=== PATIENT | female | born 1995 | race Caucasian/White ===

== ENCOUNTER 2020-04-13 16:05 | Outpatient (REF) | payer OTHER, SELFPAY | END 2020-04-13 16:06 | disposition home or self-care (01) | LOC: HO.LNP 16:05 | PROVIDERS: Visit Provider Hospitalist | DX: Z20.828 Contact with and (suspected) exposure to other viral communicable diseases (principal) | CPT/HCPCS: U0003 ==

== ENCOUNTER 2020-07-02 10:53 | Outpatient (REF) | payer OTHER, SELFPAY ==
[2020-07-04 09:57] LABS: C. trachomatis RNA TMA NOT DETECTED (NOT DETECTED); N. gonorrhoeae RNA TMA NOT DETECTED (NOT DETECTED)
== END 2020-07-02 10:54 | disposition home or self-care (01) ==
LOC: HO.LAB 10:53
PROVIDERS: Visit Provider Advanced Practice Midwife
DX: Z11.3 Encounter for screening for infections with a predominantly sexual mode of transmission (principal)
CPT/HCPCS: 36415; 87491; 87591

== ENCOUNTER → 2020-09-10 09:59 | Outpatient (BNVA) | payer OTHER, SELFPAY | PROVIDERS: Visit Provider Advanced Practice Midwife | DX: Z30.46 Encounter for surveillance of implantable subdermal contraceptive (principal) | CPT/HCPCS: 11981; 11982; 11983; 81025 ==

== ENCOUNTER → 2020-10-22 10:27 | Outpatient (BNVA) | payer OTHER, SELFPAY | PROVIDERS: PCP Internal Medicine; Visit Provider Advanced Practice Midwife | DX: Z30.46 Encounter for surveillance of implantable subdermal contraceptive (principal) | CPT/HCPCS: 99212 ==

== ENCOUNTER 2021-02-12 14:00 | Outpatient (REF) | payer OTHER, SELFPAY ==
[2021-02-12 18:08] LABS: Alanine Aminotransferase 13 U/L (0-31); Albumin Level 4.3 g/dL (3.5-5.0); Alkaline Phosphatase 55 U/L (39-117); Aspartate Amino Transferase 17 U/L (5-31); Bilirubin Direct 0.2 mg/dL (0.0-0.5); Bilirubin Total 0.5 mg/dL (0.0-1.0)
== END 2021-02-12 14:01 | disposition home or self-care (01) ==
LOC: HO.HMGCLDS 14:00
PROVIDERS: PCP Internal Medicine; Visit Provider Podiatrist
DX: B35.1 Tinea unguium (principal)
CPT/HCPCS: 36415; 80076

== ENCOUNTER 2021-10-29 14:28 | Outpatient (REF) | payer OTHER, SELFPAY ==
[2021-10-29 15:31] LABS: Influenza A PCR NEGATIVE (Negative); Influenza B PCR NEGATIVE (Negative); Resp Syncy Virus RNA Qual PCR NEGATIVE (Negative); SARS COV2 PCR INHOUSE NEGATIVE (Negative)
== END 2021-10-29 14:29 | disposition home or self-care (01) ==
LOC: HO.LNP 14:28
PROVIDERS: Visit Provider Physician Assistant
DX: J06.9 Acute upper respiratory infection, unspecified (principal); R05.9 Cough, unspecified; J02.9 Acute pharyngitis, unspecified; Z20.822 Contact with and (suspected) exposure to COVID-19
CPT/HCPCS: 0241U

== ENCOUNTER 2022-09-05 09:28 | Outpatient (AMB) | payer OTHER, SELFPAY ==
--- NOTE | 2022-09-05 09:31 | A.OFFPC_ITS ---
<Statement entered by oJsi Elizabeth MD - 07/03/25 00:24> This note has been administratively?closed. Vital Signs 09/05/22 09:32 Height 5 ft 7.5 in Weight 169 lb 0.6 oz BMI 26.1 BP 118/82 Blood Pressure Location Lt brachial Position Sitting Pulse 76 Pulse Source Pulse Oximeter Temp Source Skin Pulse Oximetry (%) 100 Oxygen Delivery Method Room Air Intake Visit Reasons: PE Intake Note: Patient is here today for a physical. 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 boulardii)) 250 mg PO BID PRN sertraline 50 mg PO DAILY Tobacco use date assessed: 09/05/22 HPI PE HPI Details 26-year-old lady here today for physical exam. She goes to [facility] OBGYN sees Dr. Goetz at 10 mm for her routine Pap and pelvic exam, last done in 2021 with normal findings. [facility] Medical History anxiety Headache above the eye region Annual visit for general adult medical examination with abnormal findings TMJ pain dysfunction syndrome Environmental and seasonal allergies Ingrown toenail of right foot Surgical History History of appendectomy Family History Father Hypertension Maternal Grandmother Diabetes mellitus Maternal Grandfather Diabetes mellitus Paternal Grandfather Diabetes mellitus Paternal Grandmother Diabetes mellitus Mother Breast cancer, Onset Age: 50 Social History Housing: Apartment Housing Other:: apartments Alcohol intake: current Alcohol intake frequency: a few times a month Patient Tobacco Use Status: Never used Tobacco Cigarette Packs Per Day: 0 e-Cigarette/Vaping Use: Never Used service: Yes Current occupational status: unemployed Cognitive needs: No Hearing needs: No Vision needs: Yes Female Reproductive History Menstrual Age of Menarche: 15 Date of last menstrual period: 05/25/22 Date of last pap smear: 06/01/22 History of abnormal pap smear: No Questionnaire PHQ-9 Over the last 2 weeks, how often have you been bothered by any of the following problems? 1. Little interest or pleasure in doing things: not at all 2. Feeling down, depressed, or hopeless: not at all 3. Trouble falling or staying asleep, or sleeping too much: not at all 4. Feeling tired or having little energy: not at all 5. Poor appetite or overeating: not at all 6. Feeling bad about yourself - or that you are a failure or have let yourself or your family down: not at all 7. Trouble concentrating on things, such as reading the newspaper or watching television: not at all 8. Moving or speaking so slowly that other people could have noticed. Or the opposite - being so fidgety or restless that you have been moving around a lot more than usual: not at all 9. Thoughts that you would be better off or of hurting yourself in some way: not at all Total score: 0 Depression Screening Interpretation: Negative Source: Developed by Drs. Arpan Lovell, Cheryl Cuba, Jaret Gibbs and colleagues, with an educational aliza from [employer]. Thrive Questionnaire Declines Thrive assessment: No Date Thrive assessed: 09/05/22 I am a: Patient What is your living situation today?: I have a steady place to live Within the past 12 months, did the food you bought not last and you didn't have the money to get more?: Never true Within the past 12 months, did you worry whether your food would run out before you got money to buy more?: Never true Do you have trouble paying for medicines?: No Do you have trouble getting transportation to medical appointments?: No Do you have trouble paying your heating and electricity bill?: No Do you have trouble taking care of your child, family member or friend?: No Do you have trouble with day-to-day activities such as bathing, preparing meals, shopping, managing finances, etc.?: No Are you currently unemployed and looking for a job?: No Are you interested in more education?: No AUDIT C Alcohol Use Questionnaire (AUDIT-C) 1. How often do you have a drink containing alcohol?: 2-4 times a month 2. How many drinks containing alcohol do you have on a typical day when you are drinking?: 1 or 2 3. How often do you have six or more drinks on one occasion?: Never Total Score: 2 LARISA-7 AMB Questionnaire LARISA-7 Date LARISA - 7 assessed: 09/05/22 Feeling nervous, anxious, or on edge: 0 = Not at all Not being able to stop or control worryin = Not at all Worrying too much about different things: 0 = Not at all Trouble relaxin = Not at all Being so restless that it is hard to sit still: 0 = Not at all Becoming easily annoyed or irritable: 0 = Not at all Feeling afraid as if something awful might happen: 0 = Not at all Total LARISA-7 score (0-4 normal; 5-9 mild; 10-14 moderate; 15-21 severe): 0 Source: Developed by Drs. Arpan Lovell, Cheryl Cuba, Jaret Gibbs and colleagues, with an educational aliza from [employer]. Physical exam (Primary Care) Vital Signs: Last Vital Signs Pulse 76 09/05/22 09:32 BP 118/82 09/05/22 09:32 Pulse Ox 100 09/05/22 09:32 Oxygen Delivery Method Room Air 09/05/22 09:32 BMI result Body Mass Index 26.1 Tobacco/Smoking Status: Tobacco use Status Tobacco use date assessed 09/05/22 09/05/22 09:33 Patient Tobacco Use Status Never used Tobacco 09/05/22 09:59 PHQ-9: PHQ-9 Score PHQ-9: Total score 0 09/05/22 10:28 Depression Screening Interpretation: Negative Thrive Assessment: Date of Thrive Assessment Date Thrive assessed 09/05/22 09/05/22 09:33 Coding Level of Care Code Admin Sign Off/No Billing Diagnoses Headache above the eye region R51.9 Annual visit for general adult medical examination with abnormal findings Z00.[address] Z97.5 Environmental and seasonal allergies J30.89 anxiety O99.345; F41.8
[2022-09-05 09:32] VITALS: BP 118/82; PULSE 76; O2SAT 100; BMI 26.1
== END 2022-09-05 10:27 | disposition home or self-care (01) ==
LOC: HO.HMGC 09:28
PROVIDERS: PCP Internal Medicine; Visit Provider Internal Medicine
DX: R51.9 Headache, unspecified (principal); Z00.01 Encounter for general adult medical examination with abnormal findings; Z97.5 Presence of (intrauterine) contraceptive device; J30.89 Other allergic rhinitis; O99.345 Other mental disorders complicating the puerperium; F41.8 Other specified anxiety disorders
CPT/HCPCS: 99499

== ENCOUNTER 2022-09-05 10:29 | Outpatient (REF) | payer OTHER, SELFPAY ==
[2022-09-05 11:42] LABS: MANUAL DIFF FLAG NO
[2022-09-05 11:55] LABS: Eosinophils Absolute Auto 0.1 X10*3/uL (0.0-0.4); Eosinophils Percent Auto 2.6 % (0-4); Hematocrit 43.7 % (37.0-47.0); Hemoglobin 14.3 g/dl (12.0-16.0); Imm Gran Abs Auto 0.01 X10*3/uL (0.00-0.03); Imm Gran Pct Auto 0.2 % (0.0-0.4); Lymphocytes Absolute Auto 1.4 X10*3/uL (1.2-4.9); Lymphocytes Percent Auto 33.3 % (20-40); Mean Corpuscular HGB Conc 32.7 g/dl (31.0-35.0); Mean Corpuscular Hemoglobin 29.3 pg (27.0-33.0); Mean Corpuscular Volume 89.5 fL (80.0-98.0); Mean Platelet Volume 11.7 fL (9.4-12.3); Monocytes Absolute Auto 0.4 X10*3/uL (0.1-1.2); Neutrophils Absolute Auto 2.3 x10*3/uL (2.0-8.3); Neutrophils Percent Auto 53.9 % (45-73); Platelet Count 241 X10*3/uL (160-400); Red Blood Count 4.88 X10*6/uL (4.20-5.50); Red Cell Distribution Width 12.2 % (11.0-16.0); White Blood Count 4.2 X10*3/uL (4.8-10.8)
[2022-09-05 12:36] LABS: Alanine Aminotransferase 16 U/L (0-31); Anion Gap 9 (12-20); Aspartate Amino Transferase 19 U/L (5-31); Blood Urea Nitrogen 21 mg/dL (9-16); Calcium 9.6 mg/dL (8.4-10.2); Carbon Dioxide 29 mmol/L (22-29); Chloride 106 mmol/L (96-108); Cholesterol 196 mg/dL; Estimated Glomerular Filt Rate > 60; Glucose Fasting 77 mg/dL (60-99); HDL Cholesterol 77 mg/dL; LDL Cholesterol Calculated 111 mg/dl; Potassium 4.4 mmol/L (3.3-5.1); Sodium 140 mmol/L (135-145); Triglycerides 44 mg/dL
[2022-09-05 12:37] LABS: Vitamin D 25-OH Total 28.3 ng/mL (>30)
== END 2022-09-05 10:30 | disposition home or self-care (01) ==
LOC: HO.HMGCLDS 10:29
PROVIDERS: PCP Internal Medicine; Visit Provider Internal Medicine
DX: Z00.01 Encounter for general adult medical examination with abnormal findings (principal); R51.9 Headache, unspecified; J30.89 Other allergic rhinitis; F41.8 Other specified anxiety disorders; Z97.5 Presence of (intrauterine) contraceptive device
CPT/HCPCS: 36415; 80048; 80061; 82306; 84450; 84460; 85025

== ENCOUNTER 2023-09-15 07:52 | Outpatient (AMB) | payer OTHER, SELFPAY ==
--- NOTE | 2023-09-15 07:54 | MHC.PC.OV ---
Vital Signs 09/15/23 07:58 Height 5 ft 8 in Weight 192 lb BMI 29.2 BP 104/70 Blood Pressure Location Rt brachial Position Sitting Pulse 77 Pulse Source Pulse Oximeter Pulse Oximetry (%) 99 Oxygen Delivery Method Room Air Intake Visit Reasons: Annual PE Intake Note: Pt is here today for her PE: Last papsmear 07/28/23 Allergies No Known Allergies Allergy (Verified 09/15/23 08:18) Medication List - Last Reconciled 09/15/23 by Josi Elizabeth MD albuterol sulfate 90 mcg/actuation 1 inh inhalation QID PRN cetirizine (Zyrtec) 10 mg PO BEDTIME PRN etonogestrel (Nexplanon) subdermal sertraline 50 mg PO DAILY Tobacco use date assessed: 09/15/23 Dental Screening Dental Screen Date: 09/15/23 Did you have a dental visit in the last 12 months?: Yes Did you have a dental problem in the last 6 months where you did not have access to dental care?: No Was dental information given to patient?: Patient has dentist HPI Annual PE HPI Details 27-year-old lady here today for her physical exam. She sees Dr. Mace at [facility] saw operator for her routine Pap and pelvic exam, up-to-date with her Pap smear, done 07/28/2023 with negative findings. Currently on Nexplanon for control and is on sertraline for treatment of anxiety, also prescribed by her saw operator. Has been having nasal congestion with postnasal drainage and sore throat, which has been present for the last several days. Patient states that her stepson and daughter has the same issues and is currently on antibiotic. Denies any accompanying fever, but has a mild headache [facility] Medical History anxiety Headache above the eye region Annual visit for general adult medical examination with abnormal findings TMJ pain dysfunction syndrome Environmental and seasonal allergies Ingrown toenail of right foot Surgical History History of appendectomy Family History Father Hypertension Maternal Grandmother Diabetes mellitus Maternal Grandfather Diabetes mellitus Paternal Grandfather Diabetes mellitus Paternal Grandmother Diabetes mellitus Mother Breast cancer, Onset Age: 50 Social History Housing: Apartment Housing Other:: apartments Alcohol intake: current Alcohol intake frequency: a few times a month Patient Tobacco Use Status: Never used Tobacco Cigarette Packs Per Day: 0 e-Cigarette/Vaping Use: Never Used service: Yes Current occupational status: unemployed Cognitive needs: No Hearing needs: No Vision needs: Yes Female Reproductive History Menstrual Age of Menarche: 15 Date of last pap smear: 07/28/23 Other: Sees OBGYN at [facility], Dr. Ernestina Mace Questionnaire PHQ-9 Over the last 2 weeks, how often have you been bothered by any of the following problems? 1. Little interest or pleasure in doing things: not at all 2. Feeling down, depressed, or hopeless: not at all 3. Trouble falling or staying asleep, or sleeping too much: not at all 4. Feeling tired or having little energy: not at all 5. Poor appetite or overeating: several days 6. Feeling bad about yourself - or that you are a failure or have let yourself or your family down: not at all 7. Trouble concentrating on things, such as reading the newspaper or watching television: not at all 8. Moving or speaking so slowly that other people could have noticed. Or the opposite - being so fidgety or restless that you have been moving around a lot more than usual: not at all 9. Thoughts that you would be better off or of hurting yourself in some way: not at all Total score: 1 Depression Screening Interpretation: Negative Depression Screening Done: Yes 23672 - PHQ-9 Billing: Yes Source: Developed by Drs. Arpan Lovell, Cheryl Cuba, Jaret Gibbs and colleagues, with an educational aliza from [employer]. Thrive Questionnaire Date Thrive assessed: 09/15/23 I am a: Patient What is your living situation today?: I have a steady place to live Within the past 12 months, did the food you bought not last and you didn't have the money to get more?: Never true Within the past 12 months, did you worry whether your food would run out before you got money to buy more?: Never true Do you have trouble paying for medicines?: No Do you have trouble getting transportation to medical appointments?: No Do you have trouble paying your heating and electricity bill?: No Do you have trouble taking care of your child, family member or friend?: No Do you have trouble with day-to-day activities such as bathing, preparing meals, shopping, managing finances, etc.?: No Are you currently unemployed and looking for a job?: No Are you interested in more education?: No THRIVE Score: 0 AUDIT C Alcohol Use Questionnaire (AUDIT-C) 1. How often do you have a drink containing alcohol?: Monthly or less 2. How many drinks containing alcohol do you have on a typical day when you are drinking?: 1 or 2 3. How often do you have six or more drinks on one occasion?: Never Total Score: 1 LARISA-7 AMB Questionnaire LARISA-7 Date LARISA - 7 assessed: 09/15/23 Feeling nervous, anxious, or on edge: 1 = Several days Not being able to stop or control worryin = Not at all Worrying too much about different things: 1 = Several days Trouble relaxin = Not at all Being so restless that it is hard to sit still: 0 = Not at all Becoming easily annoyed or irritable: 1 = Several days Feeling afraid as if something awful might happen: 1 = Several days Total LARISA-7 score (0-4 normal; 5-9 mild; 10-14 moderate; 15-21 severe): 4 Source: Developed by Drs. Arpan Lovell, Cheryl Cuba, Jaret Gibbs and colleagues, with an educational aliza from [employer]. LARISA-7 Assessment Billing LARISA-7 Assessment Tool: LARISA-7 Assessment 40825 (Currently prescribed sertraline by her OBGYN) Review of Systems Const Denies body aches, Denies fatigue, Denies fever(s), Reports headache(s) and Denies weakness Eyes Denies change in vision, Denies eye discharge and Denies itchy eyes ENT Reports as per HPI and Reports headache(s) Card Denies chest pain, Denies lightheadedness, Denies palpitations and Denies dyspnea Resp Denies chest congestion, Denies cough, Denies dyspnea and Denies wheezing GI Denies abdominal pain, Denies change in bowel habits and Denies heartburn Denies urinary frequency, Denies dysuria and Denies urinary urgency Musc Denies myalgias, Denies arthralgias, Denies joint swelling, Denies muscle cramps and Denies muscle weakness Skin/Breast Denies lesions and Denies rash Neuro Reports headache(s) and Denies weakness Psych Reports as per HPI Endo Denies fatigue, Denies polydipsia, Denies polyuria and Denies palpitations Duncan/Lymph Denies easy bruising Aller/Immun Denies itchy eyes, Reports seasonal rhinorrhea and Denies wheezing Physical exam (Primary Care) Vital Signs: Last Vital Signs Pulse 77 09/15/23 07:58 BP 104/70 09/15/23 07:58 Pulse Ox 99 09/15/23 07:58 Oxygen Delivery Method Room Air 09/15/23 07:58 BMI result Body Mass Index 29.2 Tobacco/Smoking Status: Tobacco use Status Tobacco use date assessed 09/15/23 09/15/23 07:57 Patient Tobacco Use Status Never used Tobacco 09/15/23 07:55 e-Cigarette/Vaping Use Never Used 09/15/23 07:57 PHQ-9: PHQ-9 Score PHQ-9: Total score 1 09/15/23 08:27 Depression Screening Interpretation: Negative Thrive Assessment: Date of Thrive Assessment Date Thrive assessed 09/15/23 09/15/23 08:08 Const General: no acute distress and alert Nutritional Appearance: not obese Orientation/consciousness: patient oriented x3 HENMT Head: Yes normocephalic and Yes atraumatic Ears: external ears normal, TM's normal bilaterally and EAC's normal General nose exam: Normal external nose present and No nasal discharge present Face and sinus: Yes face symmetric and No sinus tenderness Mouth: Normal oral and palatal mucosa present, lip normal and moist mucous membranes Throat: Yes abnormal tonsil (Erythematous tonsils), Yes posterior oropharynx abnormal (Erythematous oropharyngeal mucosa) and Yes postnasal drainage Eyes General: appearance normal, both eyes and all related structures Eyelids: Yes eyelids normal Conjunctivae: conjunctivae normal Sclerae: sclerae normal Pupils: Equal, round and reactive pupils present EOM: EOMs intact bilaterally Neck Neck: Yes full ROM, Yes no lymphadenopathy and Yes supple Thyroid: Thyroid normal Chest Other: Patient declined, states that OBGYN did her breast exam 2 months ago Resp Effort & Inspection: normal respiratory effort and able to speak in complete sentences Auscultation: clear to auscultation bilaterally Cardio Rate: regular rate Rhythm: regular rhythm Heart sounds: S1 normal heart sound present and S2 normal heart sound present GI Palpation (GI): Soft to palpation, nontender, no guarding and no masses Auscultation: normal bowel sounds General: Yes no CVA tenderness and Yes deferred (Sees [facility], up-to-date with her Pap smear and pelvic exam done 07/28/23) Back/Spine/Pelvis Back: no CVA tenderness and No back tenderness Skin General skin exam: no rashes or lesions noted Neuro General: patient oriented x3, gait normal, moves all extremities, Normal light touch and pain sensation, no focal motor deficits and CN's II-XI intact bilaterally Cranial nerves: Yes Equal, round and reactive pupils present Cognition (Neuro): normal cognition Gait exam (Neuro): Normal gait present Motor exam (neuro): 5/5 motor strength present throughout Extrem General: Yes normal to inspection, Yes full ROM, Yes no joint enlargement, No no pedal edema and Yes normal gait Psych Appearance: grossly normal and well kempt Mental Status: mental status grossly normal Speech and movement: Normal speech and movement present Affect: normal affect Attitude: cooperative Thought process: Normal thought process present Thought content: Normal thought content present Immunizations Boostrix Tdap 2.5 Lf unit-8 mcg-5 Lf/0.5 mL intramuscular syringe Performing Provider: Josi Elizabeth MD Performing Location: [facility] Administered by: RAJ Ware on 09/15/23 08:39 Dose Route Admin Location Dispensed Lot Number Expiration Date NDC Acting Professor 0.5 mL IM Left Deltoid 0.5 mL [id number] 10/29/25 [id number] [email or web address] VIS Given Date VIS Provided VIS Publication Date 09/15/23 Single Vaccine 21 Eligibility Eligibility Date Funding Source Not VFC Eligible 09/15/23 Private Assessment and Plan Assessment & Plan (1) Annual visit for general adult medical examination with abnormal findings: Code(s): Z00.01 - Encounter for general adult medical examination with abnormal findings Plan: Will check appropriate labs. Continue regular dental visit every 6 months and regular eye exams, at least every 2 years. Take adequate calcium in diet and vitamin-D 3 at 2000 IU per cap once a day, in addition to weight-bearing exercises to help maintain good muscle tone and weight control. Instructed to do self-breast exam, and recommended to get yearly mammogram, starting at age 40.. [place] reminded to get her yearly flu vaccine, Tdap given today. Up-to-date with her cervical cancer screening and pelvic exam, done at [facility] by Dr. Mace last July 2023 (2) Nexplanon in place: Comment: sees Dr Mace Code(s): Z97.5 - Presence of (intrauterine) contraceptive device (3) anxiety: Code(s): O99.345 - Other mental disorders complicating the puerperium; F41.8 - Other specified anxiety disorders (4) Environmental and seasonal allergies: Code(s): J30.89 - Other allergic rhinitis Plan: Currently on cetirizine (5) History of vitamin D deficiency: Code(s): Z86.39 - Personal history of other endocrine, nutritional and metabolic disease Plan: Will check vitamin-D level (6) Acute pharyngitis: Code(s): J02.9 - Acute pharyngitis, unspecified Qualifiers: Pharyngitis/tonsillitis etiology: unspecified etiology Qualified Code(s): J02.9 - Acute pharyngitis, unspecified Plan: Advised to do warm saline gargles, to nasal saline wash, may take [id number] DayQuil/NyQuil, prescription also sent for Saul, to take if symptoms unresolved after 3- days Orders: Orders Aspartate Amino Transferase Today F41.8 - Other specified anxiety disorders, J30.89 - Other allergic rhinitis, O99.345 - Other mental disorders complicating the puerperium, Z00.01 - Encounter for general adult medical examination with abnormal findings, Z13.1 - Encounter for screening for diabetes mellitus, Z13.220 - Encounter for screening for lipoid disorders, Z86.39 - Personal history of other endocrine, nutritional and metabolic disease, Z97.5 - Presence of (intrauterine) contraceptive device Glucose Fasting Today F41.8 - Other specified anxiety disorders, J30.89 - Other allergic rhinitis, O99.345 - Other mental disorders complicating the puerperium, Z00.01 - Encounter for general adult medical examination with abnormal findings, Z13.1 - Encounter for screening for diabetes mellitus, Z13.220 - Encounter for screening for lipoid disorders, Z86.39 - Personal history of other endocrine, nutritional and metabolic disease, Z97.5 - Presence of (intrauterine) contraceptive device Lipid Panel Today F41.8 - Other specified anxiety disorders, J30.89 - Other allergic rhinitis, O99.345 - Other mental disorders complicating the puerperium, Z00.01 - Encounter for general adult medical examination with abnormal findings, Z13.1 - Encounter for screening for diabetes mellitus, Z13.220 - Encounter for screening for lipoid disorders, Z86.39 - Personal history of other endocrine, nutritional and metabolic disease, Z97.5 - Presence of (intrauterine) contraceptive device Alanine Aminotransferase Today F41.8 - Other specified anxiety disorders, J30.89 - Other allergic rhinitis, O99.345 - Other mental disorders complicating the puerperium, Z00.01 - Encounter for general adult medical examination with abnormal findings, Z13.1 - Encounter for screening for diabetes mellitus, Z13.220 - Encounter for screening for lipoid disorders, Z86.39 - Personal history of other endocrine, nutritional and metabolic disease, Z97.5 - Presence of (intrauterine) contraceptive device Vitamin D 25-OH Total Today F41.8 - Other specified anxiety disorders, J30.89 - Other allergic rhinitis, O99.345 - Other mental disorders complicating the puerperium, Z00.01 - Encounter for general adult medical examination with abnormal findings, Z13.1 - Encounter for screening for diabetes mellitus, Z13.220 - Encounter for screening for lipoid disorders, Z86.39 - Personal history of other endocrine, nutritional and metabolic disease, Z97.5 - Presence of (intrauterine) contraceptive device Medications: New azithromycin For 250 mg dose pack: take 500 mg today (day 1), then 250 mg for 4 days (days 2-5) PO 6 tabs 0RF J02.9 - Acute pharyngitis, unspecified Coding Level of Care Code Est Pt Prev Care [id number]) Diagnoses Annual visit for general adult medical examination with abnormal findings Z00.[address] Z97.5 anxiety O99.345; F41.8 Environmental and seasonal allergies J30.89 History of vitamin D deficiency Z86.39 Acute pharyngitis, unspecified etiology J02.9 Pharyngitis/tonsillitis etiology: unspecified etiology Additional Codes LARISA-7 Assessment Billing - LARISA-7 Assessment Tool: LARISA-7 Assessment 14075 ([id number])
[2023-09-15 07:58] VITALS: BP 104/70; PULSE 77; O2SAT 99; BMI 29.2
== END 2023-09-15 09:00 | disposition home or self-care (01) ==
PROVIDERS: Visit Provider Internal Medicine
DX: Z00.01 Encounter for general adult medical examination with abnormal findings (principal); J02.9 Acute pharyngitis, unspecified; Z97.5 Presence of (intrauterine) contraceptive device; Z23 Encounter for immunization; O99.345 Other mental disorders complicating the puerperium; F41.8 Other specified anxiety disorders; J30.89 Other allergic rhinitis; Z86.39 Personal history of other endocrine, nutritional and metabolic disease
CPT/HCPCS: 90471; 90715; 99213; 99395

== ENCOUNTER 2023-12-08 08:29 | Outpatient (AMB) | payer OTHER, SELFPAY ==
[2023-12-08 08:32] VITALS: BP 124/68; PULSE 69; O2SAT 98; BMI 26.6
--- NOTE | 2023-12-08 08:32 | AM.OFFWIN_ITS ---
Intake Vital Signs 12/08/23 08:32 Height 5 ft 8 in Weight 175 lb 4 oz BMI 26.6 BP 124/68 Blood Pressure Location Rt brachial Position Sitting Pulse 69 Pulse Source Pulse Oximeter Pulse Oximetry (%) 98 Oxygen Delivery Method Room Air Intake Visit Reasons: EP UTI Patient Tobacco Use Status: Never used Tobacco Allergies No Known Allergies Allergy (Verified 12/08/23 08:32) Medication List - Last Reconciled 12/08/23 by Dominik Arreola MD cetirizine (Zyrtec) 10 mg PO BEDTIME PRN etonogestrel (Nexplanon) subdermal sertraline 50 mg PO DAILY Do you need a note to return to daycare/school/sports/work: No HPI EP UTI HPI Details Patient is 28-year-old female came in today to be evaluated for possible urinary tract infection Patient says that symptoms started this past Thursday She started having burning with micturition and uncomfortable feeling suprapubic Patient says that she has had UTIs in the past and was aware that she is starting to have a UTI again Last UTI was January of last year She picked up [id number] Azol and started taking that that has helped with pelvic discomfort She is flying tomorrow and wanted to be sure that her infection is getting better. There is no fever no chills there is no nausea no vomiting no headache no back pain UA shows positive leuk esterase 2+ I have sent Macrobid 100 mg b.i.d. for 5 days Patient was also instructed to push fluids PFSH Medical History anxiety Headache above the eye region Annual visit for general adult medical examination with abnormal findings TMJ pain dysfunction syndrome Environmental and seasonal allergies Ingrown toenail of right foot Surgical History History of appendectomy Family History Father Hypertension Maternal Grandmother Diabetes mellitus Maternal Grandfather Diabetes mellitus Paternal Grandfather Diabetes mellitus Paternal Grandmother Diabetes mellitus Mother Breast cancer, Onset Age: 50 Social History Housing: Apartment Housing Other:: [employer] [place] Alcohol intake: current Alcohol intake frequency: a few times a month Patient Tobacco Use Status: Never used Tobacco Cigarette Packs Per Day: 0 e-Cigarette/Vaping Use: Never Used service: Yes Current occupational status: unemployed Cognitive needs: No Hearing needs: No Vision needs: Yes Female Reproductive History Menstrual Age of Menarche: 15 Review of Systems Const All systems reviewed & are unremarkable except as noted in HPI and below Physical Exam Vital Signs: Last Vital Signs Pulse 69 12/08/23 08:32 BP 124/68 12/08/23 08:32 Pulse Ox 98 12/08/23 08:32 Oxygen Delivery Method Room Air 12/08/23 08:32 BMI result Body Mass Index 26.6 Const General: no acute distress Orientation/consciousness: patient oriented x3 Eyes General: appearance normal, both eyes and all related structures Resp Effort & Inspection: normal respiratory effort and able to speak in complete sentences GI Other: No suprapubic discomfort General: Yes no CVA tenderness Back/Spine/Pelvis Back: no CVA tenderness Neuro General: patient oriented x3 Psych Mental Status: mental status grossly normal Results AMB Urinalysis, Automated UA Leukoctes 125 Prudence/uL Last Edit by Anthony Kim CMA on 12/08/23 08:3 9 UA Nitrite Positive Last Edit by Anthony Kim CMA on 12/08/23 08:39 UA Urobilinogen 1 mg/dL Last Edit by Anthony Kim CMA on 12/08/23 08:3 9 UA Protein 0 mg/dL Last Edit by Anthony Kim CMA on 12/08/23 08:39 UA pH 6.0 Last Edit by Anthony Kim CMA on 12/08/23 08:39 UA Blood 0 Manny/uL Last Edit by Anthony Kim CMA on 12/08/23 08:39 UA Specific Snyder 1.020 Last Edit by Anthony Kim CMA on 12/08/23 08:39 UA Ketone Negative Last Edit by Anthony Kim CMA on 12/08/23 08:39 UA Bilirubin 1 mg/dL Last Edit by Anthony Kim CMA on 12/08/23 08:39 UA Glucose 0 mg/dL Last Edit by Anthony Kim CMA on 12/08/23 08:39 Results Reviewed Results Reviewed: Laboratory Last Values Urine pH (Auto) 6.0 12/08/23 08:38 Specific Snyder (Auto) 1.020 12/08/23 08:38 Urine Protein (Auto) 0 mg/dL 12/08/23 08:38 Glucose (UA)(Auto) 0 mg/dL 12/08/23 08:38 Urine Ketones (Auto) Negative 12/08/23 08:38 Urine Blood (Auto) 0 Manny/uL 12/08/23 08:38 Urine Nitrite (Auto) Positive 12/08/23 08:38 Urine Bilirubin (Auto) 1 mg/dL 12/08/23 08:38 Urine Urobilinogen (Auto) 1 mg/dL 12/08/23 08:38 Leukocyte Esterase (Auto) 125 Prudence/uL 12/08/23 08:38 Assessment & Plan Assessment & Plan (1) Acute cystitis: Code(s): N30.00 - Acute cystitis without hematuria Qualifiers: Hematuria presence: without hematuria Qualified Code(s): N30.00 - Acute cystitis without hematuria Plan Patient is 28-year-old female came in today to be evaluated for possible urinary tract infection Patient says that symptoms started this past Thursday She started having burning with micturition and uncomfortable feeling suprapubic Patient says that she has had UTIs in the past and was aware that she is starting to have a UTI again Last UTI was January of last year She picked up [id number] Azol and started taking that that has helped with pelvic discomfort She is flying tomorrow and wanted to be sure that her infection is getting better. There is no fever no chills there is no nausea no vomiting no headache no back pain UA shows positive leuk esterase 2+ I have sent Macrobid 100 mg b.i.d. for 5 days Patient was also instructed to push fluids Orders: Orders AMB Urinalysis Automated Today Z13.9 - Encounter for screening, unspecified Urine Culture Today N30.00 - Acute cystitis without hematuria Medications: New nitrofurantoin monohyd/m-cryst 100 mg (Macrobid) must administer with a meal/food 100 mg PO Q12H 10 caps 0RF 5 days Coding Level of Care Code Est Pt Level 3 (01893) Diagnoses Acute cystitis without hematuria N30.00 Hematuria presence: without hematuria
== END 2023-12-08 09:15 | disposition home or self-care (01) ==
PROVIDERS: PCP Internal Medicine; Visit Provider Internal Medicine
DX: N30.00 Acute cystitis without hematuria (principal)
CPT/HCPCS: 81003; 99213

== ENCOUNTER 2023-12-08 10:06 | Outpatient (REF) | payer OTHER, SELFPAY | END 2023-12-08 10:07 | disposition home or self-care (01) | LOC: HO.LNP 10:06 | PROVIDERS: Visit Provider Internal Medicine | DX: N30.00 Acute cystitis without hematuria (principal) | CPT/HCPCS: 87086; 87147 ==